=== PATIENT | male | born 1980 | race African-American/Black ===

== ENCOUNTER 2022-05-18 14:07 | Emergency (ER) | payer MEDICAID ==
[~2022-05-18] VITALS: Ht 162.6 cm; Wt 76.0 kg
[2022-05-18] MEDS ORDERED: IBUPROFEN 400MG TABLET PO ONE (15:30)
[2022-05-18] MEDS ORDERED: IBUP-2028 MT (16:08)
[2022-05-18 16:54] VITALS: BP 118/79
== END 2022-05-18 17:41 | disposition home or self-care (01) ==
LOC: ER 14:07
DX: S92.322A Displaced fracture of second metatarsal bone, left foot, initial encounter for closed fracture (principal); W22.8XXA Striking against or struck by other objects, initial encounter; Y93.89 Activity, other specified; Y92.013 Bedroom of single-family (private) house as the place of occurrence of the external cause; F31.9 Bipolar disorder, unspecified; F20.9 Schizophrenia, unspecified; F71 Moderate intellectual disabilities
CPT/HCPCS: 29515; 73630; 99283